=== PATIENT | male | born 1960 | race Caucasian/White ===

== ENCOUNTER 2020-10-12 20:06 | Emergency (ER) | payer OTHER ==
[~2020-10-12] VITALS: Ht 160 cm; Wt 68.0 kg
[2020-10-12 20:07] VITALS: BP 134/82
--- NOTE | 2020-10-12 20:07 | NUR ---
to bed ambulatory
--- NOTE | 2020-10-12 20:24 | NUR ---
EMT AT BEDSIDE FOR EKG.
--- NOTE | 2020-10-12 21:02 | NUR ---
ERMD at bedside for medical evaluation.
[2020-10-12] MEDS ORDERED: IBUP-2213 PO (21:10)
--- NOTE | 2020-10-12 21:25 | NUR ---
Patient discharged with v/s stable. Written and verbal after care instructions given and explained. Patient alert, oriented and verbalized understanding of instructions. Ambulatory with steady gait. All questions addressed prior to discharge. ID band removed. Patient advised to follow up with PMD. Rx of Ibuprofen 600 mg given. Patient educated on indication of medication including possible reaction and side effects. Opportunity to ask questions provided and answered.
== END 2020-10-12 21:25 | disposition home or self-care (01) ==
LOC: MED 20:06
DX: R07.9 Chest pain, unspecified (principal); R50.9 Fever, unspecified; R06.02 Shortness of breath; Z88.0 Allergy status to penicillin
CPT/HCPCS: 71045; 93005; 99283